=== PATIENT | female | born 1945 | race Caucasian/White ===

== ENCOUNTER 2024-11-04 11:15 | Outpatient (RCR) | payer OTHER, SELFPAY | END 2024-12-15 10:30 | disposition home or self-care (01) | PROVIDERS: PCP Surgery; Visit Provider Surgery | DX: M54.16 Radiculopathy, lumbar region (principal); M48.061 Spinal stenosis, lumbar region without neurogenic claudication; Z51.89 Encounter for other specified aftercare | CPT/HCPCS: 97110; 97140; 97161 ==